=== PATIENT | female | born 1995 | race Caucasian/White ===

== ENCOUNTER 2019-03-29 14:04 | Emergency (ER) | payer OTHER ==
--- NOTE | 2019-03-29 14:14 | PDOC ---
History of Present Illness <Danielito Davis - Last Filed: 03/29/19 15:04> - General History Source: Patient Exam Limitations: No Limitations - History of Present Illness Initial Comments: 03/29/19 14:36 23y F with no significant PMH presenting to ED with complaints of a rash that started 2d ago. Pt states she noticed the rash on the bridge of her nose near the eyes it it was itchy. It progressed down the neck to the upper back yesterday and today she noticed it on her ears. 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 She took 50mg Benadryl last night and it did not help. She was also given a Claritin by the school nurse. <Juju Burger - Last Filed: 03/29/19 18:53> - General Chief Complaint: Rash Stated Complaint: RASH TO NECK, CHEST, AND ARMS Time Seen by Provider: 03/29/19 14:08 Past History <Danielito Davis - Last Filed: 03/29/19 15:04> <Juju Burger - Last Filed: 03/29/19 18:53> - Past Medical History Allergies/Adverse Reactions: Allergies Allergy/AdvReac Type Severity Reaction Status Date / Time No Known Allergies Allergy Verified 03/29/19 14:06 Home Medications: Ambulatory Orders Hydrocortisone Valerate [Westcort 0.2% Cream -] 1 applic TP BID #1 tube Norethindrone-E.estradiol-Iron [Junel Fe 1 mg-20 Mcg Tablet] 1 each PO DAILY Review of Systems - Review of Systems Constitutional: No: Symptoms Reported HEENTM: No: Symptoms Reported Respiratory: No: Symptoms reported Cardiac (ROS): No: Symptoms Reported ABD/GI: No: Symptoms Reported : No: Symptoms Reported Musculoskeletal: No: Symptoms Reported Integumentary: Yes: See HPI Neurological: No: Symptoms reported <Juju Burger - Last Filed: 03/29/19 18:53> *Physical Exam - Vital Signs Last Vital Signs Temp Pulse Resp BP Pulse Ox 98.1 F 66 17 122/86 99 03/29/19 14:29 03/29/19 14:29 03/29/19 14:29 03/29/19 14:29 03/29/19 14:29 <Danielito Davis - Last Filed: 03/29/19 15:04> - Physical Exam General Appearance: Yes: Nourished, Appropriately Dressed. No: Apparent Distress HEENT: positive: EOMI, LEILA, TMs Normal, Pharynx Normal, Other (erythematous papular rash on ears and neck) Neck: positive: Trachea midline, Supple. negative: Lymphadenopathy (R), Lymphadenopathy (L) Respiratory/Chest: positive: Lungs Clear, Normal Breath Sounds. negative: Crackles, Rales, Stridor, Wheezing, Other Cardiovascular: positive: Regular Rhythm, Regular Rate, S1, S2. negative: Edema , JVD, Murmur Integumentary: positive: Normal Color, Dry, Warm, Rash (erythematous rsh with papules on uypper back and upper chest. ) Neurologic: positive: statistical analyst II-XII NML intact, Fully Oriented, Alert, Normal Mood/ Affect, Normal Response, Motor Strength 5/5 <Juju Burger - Last Filed: 03/29/19 18:53> Medical Decision Making - Medical Decision Making 03/29/19 18:50 23y F presenting to ED with pruritic rash on upper back/chest, neck and ears. vitals wnl low suspicion for viral exanthem, measels, infectious rash, cellulitis, vzv suspect atopic dermatitis. hydrocortisone cream prescribed. dc home. given return precautions. <Juju Burger - Last Filed: 03/29/19 18:53> Discharge - Discharge Information Problems reviewed: Yes - Admission No <Danielito Davis - Last Filed: 03/29/19 15:04> <Juju Burger - Last Filed: 03/29/19 18:53> - Discharge Information Clinical Impression/Diagnosis: Contact dermatitis Qualifiers: Contact dermatitis type: unspecified Contact dermatitis trigger: cosmetics Qualified Code(s): L25.0 - Unspecified contact dermatitis due to cosmetics Condition: Stable Disposition: HOME - Additional Discharge Information Prescriptions: Hydrocortisone Valerate [Westcort 0.2% Cream -] 1 applic TP BID #1 tube - Follow up/Referral Referrals: Windy Philip [Staff Physician] - 1 week - Patient Discharge Instructions Patient Printed Discharge Instructions: DI for Contact Dermatitis, DI for Atopic Dermatitis - Adult Additional Instructions: Keep the skin cool. Cool compresses may give relief. Avoid overheating. Avoid very hot baths or showers. Avoid wool or synthetic fibers. Pure cotton clothing is advisable Apply prescription cream twice daily Take Claritin or Benadryl for itching as directed See fish farm laborer if there is no improvement or if the rash spreads as directed.
[2019-03-29 14:55] VITALS: BP 122/86; PULSE 66; TEMP 98.1; BMI 21.9
--- NOTE | 2019-03-29 15:27 | PDOC ---
Attending Attestation - Resident Resident Name: [email or web address] - ED Attending Attestation I have performed the following: I have examined & evaluated the patient, The case was reviewed & discussed with the resident, I agree w/resident's findings & plan, Exceptions are as noted - HPI HPI: 03/29/19 15:30 Rash on the forehead, neck, and upper back for several days. Using cosmetic cream from [facility]. No other exposures. No other medical or surgical problems past or present. - Physicial Exam PE: 03/29/19 15:31 Eczematous, almost urticarial type eruption with pruritus most prominent on the forehead, anterior neck, and upper back. Mildly erythematous. No excoriations or sign of superinfection. No adenopathy - Medical Decision Making 03/29/19 15:31 Assessment: Contact dermatitis versus atopic eczema versus heat rash Plan: Topical steroids, antihistamines, discontinue all cosmetics and shampoos/ soaps. If no improvement or if rash spreads, referred to experimental outboard motors mechanic for follow-up. Fully ambulatory in no significant distress at discharge
== END 2019-03-29 15:46 | disposition home or self-care (01) ==
LOC: FER 14:04
DX: L25.0 Unspecified contact dermatitis due to cosmetics (principal)
CPT/HCPCS: 99283-25